=== PATIENT | male | born 1985 | race Caucasian/White ===

== ENCOUNTER 2024-02-22 21:12 | Emergency (ER) | payer OTHER ==
[~2024-02-22] VITALS: Ht 185.4 cm; Wt 99.8 kg
[2024-02-22 21:35] VITALS: TEMP 98
[2024-02-22] MEDS ORDERED: IBUPROFEN 400 MG TABLET ONE (21:46)
[2024-02-22] MEDS: IBUPROFEN 400 MG TABLET PO ONE (21:48)
[2024-02-23 00:30] VITALS: BP 118/85; O2SAT 98
== END 2024-02-23 00:30 | disposition home or self-care (01) ==
LOC: ER 21:27
DX: S39.012A Strain of muscle, fascia and tendon of lower back, initial encounter (principal); R51.9 Headache, unspecified; E78.5 Hyperlipidemia, unspecified; V43.62XA Car passenger injured in collision with other type car in traffic accident, initial encounter; Y93.89 Activity, other specified; Y92.488 Other paved roadways as the place of occurrence of the external cause; Y99.8 Other external cause status
CPT/HCPCS: 72131-TC